=== PATIENT | female | born 1985 | race Caucasian/White ===

== ENCOUNTER 2016-06-08 22:11 | Emergency (ER) | payer MEDICAID ==
[2016-06-08 22:26] VITALS: BP 128/92
== END 2016-06-08 23:28 | disposition home or self-care (01) ==
LOC: ED 22:11
DX: J06.9 Acute upper respiratory infection, unspecified (principal)

== ENCOUNTER 2017-03-06 20:13 | Emergency (ER) | payer MEDICAID ==
[~2017-03-06] VITALS: Ht 154.9 cm; Wt 95.2 kg
[2017-03-06 20:21] VITALS: Ht 154.9 cm; Wt 95.2 kg
[2017-03-06 22:36] VITALS: BP 120/63
== END 2017-03-06 22:36 | disposition home or self-care (01) ==
LOC: ED 20:13
DX: M79.642 Pain in left hand (principal); R03.0 Elevated blood-pressure reading, without diagnosis of hypertension
CPT/HCPCS: J1885

== ENCOUNTER 2017-06-18 15:32 | Emergency (ER) | payer MEDICAID ==
[~2017-06-18] VITALS: Ht 154.9 cm; Wt 91.7 kg
[2017-06-18 15:42] VITALS: Ht 154.9 cm; Wt 91.7 kg
[2017-06-18 17:54] VITALS: BP 136/94
[2017-06-18 18:36] LABS: CALCIUM 8.7 mg/dL (8.5-10.1); CARBON DIOXIDE 27.1 mmol/L (21-32); CHLORIDE SERUM 105 mmol/L (98-107); CREATININE SERUM 0.7 mg/dL (0.6-1.0); GFR1 > 60 mL/min; GLUCOSE SERUM 86 mg/dL (74-106); POTASSIUM SERUM 4.1 mmol/L (3.5-5.1); SODIUM SERUM 143 mmol/L (136-145)
[2017-06-18 18:40] LABS: ALBUMIN 3.5 g/dL (3.4-5.0); ALKALINE PHOSPHATASE 53 U/L (46-116); ALT/SGPT 25 U/L (14-59); AST/SGOT 9 U/L (15-37); BILIRUBIN TOTAL 0.3 mg/dL (0.20-1.00)
== END 2017-06-18 19:32 | disposition home or self-care (01) ==
LOC: ED 15:32
PROVIDERS: Emergency Medicine
DX: R20.0 Anesthesia of skin (principal); F10.10 Alcohol abuse, uncomplicated; R11.10 Vomiting, unspecified; I10 Essential (primary) hypertension
CPT/HCPCS: J7030

== ENCOUNTER 2018-11-19 21:53 | Emergency (ER) | payer MEDICAID ==
[~2018-11-19] VITALS: Ht 154.9 cm; Wt 99.8 kg
[2018-11-19 21:58] VITALS: Ht 154.9 cm; Wt 99.8 kg
[2018-11-19 23:20] VITALS: BP 130/85
== END 2018-11-19 23:20 | disposition home or self-care (01) ==
LOC: ED 21:53
DX: B34.9 Viral infection, unspecified (principal); I10 Essential (primary) hypertension; Z90.49 Acquired absence of other specified parts of digestive tract
CPT/HCPCS: 87804